=== PATIENT | female | born 1985 ===

== ENCOUNTER → 2019-11-28 | Outpatient (CLI) | payer OTHER ==
[~2019-11-28] MED LIST: PRENATAL TABLE1 EAC1 PO
== END | disposition home or self-care (01) ==
LOC: MAMO-SONO 10:15 → PRENATAL 11:13 → MAMO-SONO 11:13
PROVIDERS: ATTEND Obstetrics & Gynecology Obstetrics
DX: O35.3XX1 Maternal care for (suspected) damage to fetus from viral disease in mother, fetus 1 (principal); O35.0XX1 Maternal care for (suspected) central nervous system malformation in fetus, fetus 1

== ENCOUNTER 2019-12-12 22:33 | Inpatient (IN) | payer OTHER ==
[~2019-12-12] VITALS: Ht 162.6 cm; Wt 2.3 kg
[2019-12-13] MEDS ORDERED: PRENATAL TABLE1 EAC1 PO (10:52)
== END 2019-12-16 12:17 | disposition home or self-care (01) | DRG 788 ==
LOC: OBS/DEL 22:33 → OB/GYN 12-13 10:50 → LDR 12-13 10:50 → OB/GYN 12-13 14:08
PROVIDERS: ADMIT Obstetrics & Gynecology Obstetrics; ATTEND Obstetrics & Gynecology Obstetrics
PROC: 4A1HXCZ Monitoring of Products of Conception, Cardiac Rate, External Approach (ICD-10-PCS; 2019-12-13)
PROC: 10D00Z1 Extraction of Products of Conception, Low, Open Approach (ICD-10-PCS; principal; 2019-12-13 10:00)
DX: O76 Abnormality in fetal heart rate and rhythm complicating labor and delivery (principal); Z3A.37 37 weeks gestation of pregnancy; Z37.0 Single live birth